=== PATIENT | male | born 2000 | race Caucasian/White ===

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

== ENCOUNTER 2023-04-06 09:03 | Emergency (ER) | payer OTHER ==
[~2023-04-06] VITALS: Ht 177.8 cm; Wt 72.6 kg
[2023-04-06 09:18] VITALS: BP 128/59
[2023-04-06 09:46] LABS: BASO % 0.4 % (0.0-1.0); EOS # 0.1 10*3/uL (0.0-0.4); EOS % 1.4 % (1.0-4.0); HEMATOCRIT 40.9 % (42.0-52.0); LYMPH # 1.2 10*3/uL (1.3-4.4); LYMPH % 17.3 % (27.0-41.0); MEAN CELL VOLUME 86.7 fl (80.0-94.0); MEAN CORPUSCULAR HGB 29.7 pg (27.0-31.0); MEAN CORPUSCULAR HGB CONC 34.2 g/dl (33.0-37.0); MEAN PLATELET VOLUME 9.4 fl (9.6-12.3); MONO # 0.8 10*3/uL (0.1-1.0); MONO % 11.2 % (3.0-9.0); NEUT % 69.6 % (47.0-73.0); PLATELET COUNT AUTOMATED 183 10*3/uL (130-400); RED BLOOD COUNT 4.72 10*6/uL (4.50-5.90); RED CELL DISTRI WIDTH 12.8 % (0-14.5); WHITE BLOOD COUNT 7.2 10*3/uL (4.8-10.8)
[2023-04-06 10:07] LABS: ALKALINE PHOSPHATASE 51 U/L (46-116); BUN 9 mg/dl (9-23); CHLORIDE 107 mmol/L (98-107); POTASSIUM 4.3 mmol/L (3.4-5.1); SGPT/ALT 14 U/L (10-49); TOTAL PROTEIN 6.6 gm/dL (6.0-8.0)
[2023-04-06] MEDS ORDERED: BURN RELIEF W-127 GM T (10:28)
== END 2023-04-06 10:59 | disposition home or self-care (01) ==
LOC: ED 09:03
PROVIDERS: Internal Medicine
DX: L55.9 Sunburn, unspecified (principal)

== ENCOUNTER 2024-06-01 14:49 | Emergency (ER) | payer BC ==
[~2024-06-01] VITALS: Ht 177.8 cm; Wt 68.0 kg
[~2024-06-01 14:49] MED LIST: BURN RELIEF W-127 GM T
[2024-06-01 15:58] VITALS: BP 122/77
[2024-06-01] MEDS ORDERED: Tetracaine Hydrochloride 0.5% 4 ML BOT OPH ONE (16:10)
[2024-06-01] MEDS ORDERED: FLUORESCEIN SODIUM 1 MG STRIP OPH ONE (16:10)
[2024-06-01] MEDS ORDERED: CIPROFLOXACIN H10 ML OPH (16:28)
== END 2024-06-01 16:47 | disposition home or self-care (01) ==
LOC: ED 14:49
DX: T15.91XA Foreign body on external eye, part unspecified, right eye, initial encounter (principal)

== ENCOUNTER 2024-09-10 10:32 | Emergency (ER) | payer OTHER, BC ==
[~2024-09-10] VITALS: Ht 177.8 cm; Wt 72.6 kg
[~2024-09-10 10:32] MED LIST changes: +CIPROFLOXACIN H10 ML OPH
[2024-09-10 10:39] VITALS: BP 130/82
[2024-09-10] MEDS ORDERED: IBUPROFEN 800 MG TAB PO ONE (10:55)
[2024-09-10] MEDS ORDERED: MELOXICAM15 MG PO (10:59)
== END 2024-09-10 11:31 | disposition home or self-care (01) ==
LOC: ED 10:32
DX: S70.01XA Contusion of right hip, initial encounter (principal); Z98.890 Other specified postprocedural states; W17.2XXA Fall into hole, initial encounter; Y93.01 Activity, walking, marching and hiking; Y92.89 Other specified places as the place of occurrence of the external cause; Y99.0 Civilian activity done for income or pay